=== PATIENT | male | born 1995 | race Two or more races ===

== ENCOUNTER 2021-07-16 22:58 | Emergency (ER) | payer OTHER ==
[~2021-07-16] VITALS: Ht 177.8 cm; Wt 68.0 kg
[2021-07-17] MEDS ORDERED: BACITRACIN 0.9 GM PACKET OINTMENT TP ONE (02:30)
[2021-07-17 02:34] VITALS: BP 118/68
== END 2021-07-17 02:48 | disposition home or self-care (01) ==
LOC: EMS 23:00
DX: S90.112A Contusion of left great toe without damage to nail, initial encounter (principal); W20.8XXA Other cause of strike by thrown, projected or falling object, initial encounter; Y93.89 Activity, other specified; Y92.89 Other specified places as the place of occurrence of the external cause; Y99.0 Civilian activity done for income or pay
CPT/HCPCS: 99283